=== PATIENT | female | born 1985 | race Hispanic/Latino ===

== ENCOUNTER 2023-11-18 09:16 | Emergency (ER) | payer OTHER, MEDICAID, SELFPAY ==
[2023-11-18] VITALS (11 sets, daily range): BP systolic 103–146; BP diastolic 58–73; PULSE 64–79; RESP 16; TEMP 37.1; O2SAT 98–100; BMI 36.2
--- NOTE | 2023-11-18 09:24 | DI.US.S_ITS ---
PROCEDURE: US OB <= 14 WEEKS FETUS INDICATIONS: SPOTTING OUTSIDE/PRIOR DATING DATA: Last menstrual period (LMP): Unknown. LMP-based estimated date of delivery (OREN): Not applicable. First dating scan (date and location): 11/18/2023. Estimated date of delivery (OREN) from first dating scan: 07/14/2024. TECHNIQUE: Real-time scanning was performed of the fetus and maternal pelvic organs, with image documentation. Endovaginal scanning was also performed to better visualize the fetus and maternal ovaries. COMPARISON: None. FINDINGS: There is a single living intrauterine gestation, with a heart rate of 87 beats per minute. [place]-rump length is 3 mm corresponding to a 5 week 6 day gestation. There is a 35 mm x 24 mm region of subchorionic hemorrhage adjacent to the internal cervical os. Maternal organs: There is a right ovarian corpus luteal cyst. Left ovary is not seen.. IMPRESSION: 1. Single living intrauterine gestation. 2. Small focus We strive to produce accurate, complete, and clear reports of imaging services. To assist us in improving patient care, this report was composed using standard report templates and voice recognition software. Therefore, it may contain abnormal punctuation, insertions and/or omissions. Occasional wrong-word or sound-alike substitutions may occur. Though we review the report and make efforts to correct it, we do recommend that the report be read carefully in proper context to recognize any text inaccuracies. Dictated by: Marizol Watkins M.D. on 11/18/2023 at 10:33 Approved by: Marizol Watkins M.D. on 11/18/2023 at 10:35
[2023-11-18 09:36] LABS: Add Manual Diff / Slide Review NO; Basophils Absolute Auto 100 /uL (0-100); Basophils Percent Auto 0.7 % (0-2); Eosinophils Absolute Auto 100 /uL (0-450); Eosinophils Percent Auto 0.8 % (2-4); Hematocrit 37.2 % (36-46); Hemoglobin 12.5 g/dL (12.0-16.0); Lymphocytes Absolute Auto 2300 /uL (1100-4500); Lymphocytes Percent Auto 31.9 % (25-40); Mean Corpuscular HGB Conc 33.7 % (30-36); Mean Corpuscular Volume 89.2 fL (80-100); Monocytes Absolute Auto 500 /uL (0-900); Neutrophils Absolute Auto 4300 /uL (1500-7000); Neutrophils Percent Auto 59.6 % (50-75); Platelet Count 284 X10^3/uL (150-400); Red Blood Cell Count 4.17 X10^6/uL (4.0-5.2); Red Cell Distribution Width 14.3 % (11.6-14.8); White Blood Cell Count 7.3 X10^3/uL (4.5-11.0)
[2023-11-18 09:50] LABS: Alanine Aminotransferase 40 IU/L (<35); Albumin 4.4 g/dL (3.5-5.0); Alkaline Phosphatase 59 U/L (38-126); Aspartate Aminotransferase 44 IU/L (14-36); BUN Creatinine Ratio 11.5 (6-22); Bilirubin Total 1.2 mg/dL (0.2-1.3); Blood Urea Nitrogen 7 mg/dL (7-17); Calcium 9.4 mg/dL (8.4-10.2); Carbon Dioxide 23 mmol/L (22-32); Chloride 103 mmol/L (98-107); Estimated Glomerular Filt Rate > 60 mL/min (>60); Globulin 4.2 g/dL (1.7-4.1); Glucose 86 mg/dL (70-100); HEMOLYSIS 120 (0-50); Potassium 4.2 mmol/L (3.4-5.1); Sodium 136 mmol/L (137-145); Total Protein 8.6 g/dL (6.3-8.2)
[2023-11-18 10:06] LABS: HCG Quantitative /Beta subunit 14495 mIU/mL
--- NOTE | 2023-11-18 11:00 | ED_ITS ---
HPI - General Chief complaint: Vaginal Bleeding Stated complaint: 8 wks , spotting Time Seen by Provider: 11/18/23 09:27 Source: patient Mode of arrival: Ambulatory Limitations: no limitations History of Present Illness HPI Narrative: 38-year-old female who believes that she is about 8 weeks . She has a SAB 1. Had some spotting yesterday. No urinary symptoms no fevers no bleeding more severe than spotting and no cramping. She and her are still in the process of establishing care locally. is present and contributes to the history. Related Data Allergies Allergy/AdvReac Type Severity Reaction Status Date / Time No Known Drug Allergies Allergy Verified 11/18/23 09:25 Exam Initial Vital Signs Initial Vital Signs: Vital Signs Temperature 98.8 F 11/18/23 09:17 Pulse Rate 74 11/18/23 09:17 Respiratory Rate 16 11/18/23 09:17 Blood Pressure 146/73 H 11/18/23 09:17 Pulse Oximetry 99 11/18/23 09:17 Oxygen Delivery Method Room Air 11/18/23 09:17 Const General: healthy appearing and No acute distress Resp Effort & Inspection: normal respiratory effort and able to speak in complete sentences Cardio Other: Normal heart rate Other: Uterus is not palpably enlarged, pelvis is nontender. Skin Other: Warm and dry Neuro General: patient alert and patient oriented x3 Course Orders Ordered: ED Orders 11/18/23 09:24 US OB <= 14 weeks fetus Stat 11/18/23 09:26 Complete Blood Count AUTO DIFF Stat Comprehensive Metabolic Panel Stat HCG Quantitative /Beta subunit Stat Type and Screen Stat Vital Signs Vital signs: Vital Signs - 8 hr 11/18/23 09:17 11/18/23 09:23 11/18/23 09:24 Temperature 98.8 F Pulse Rate 74 74 Respiratory Rate 16 Blood Pressure 146/73 H 146/73 H Pulse Oximetry 99 100 Oxygen Delivery Method Room Air 11/18/23 09:24 11/18/23 09:29 11/18/23 09:30 Temperature Pulse Rate 77 66 Respiratory Rate Blood Pressure 111/69 Pulse Oximetry 100 99 Oxygen Delivery Method 11/18/23 10:00 Temperature Pulse Rate Respiratory Rate Blood Pressure 113/60 Pulse Oximetry Oxygen Delivery Method MDM - OB/Uterine Contractions Lab Data Lab results narrative: Patient is Rh positive. CBC with diff and CMP are unremarkable. Quantitative hCG is appropriate, dip UA does not suggest infection 11/18/23 09:26 11/18/23 09:26 Labs: Lab Results 11/18/23 Range/Units 09:26 WBC 7.3 (4.5-11.0) X10^3/uL RBC 4.17 (4.0-5.2) X10^6/uL Hgb 12.5 (12.0-16.0) g/dL Hct 37.2 (36-46) % MCV 89.2 (80-100) fL MCH 30.0 (26-34) PG MCHC 33.7 (30-36) % RDW 14.3 (11.6-14.8) % Plt Count 284 (150-400) X10^3/uL Neut % (Auto) 59.6 (50-75) % Lymph % (Auto) 31.9 (25-40) % [place] % (Auto) 7.0 (3-14) % Eos % (Auto) 0.8 L (2-4) % Baso % (Auto) 0.7 (0-2) % Neut # (Auto) 4300 (3291-6432) /uL Lymph # (Auto) 2300 (7940-7229) /uL [place] # (Auto) 500 (0-900) /uL Eos # (Auto) 100 (0-450) /uL Baso # (Auto) 100 (0-100) /uL Sodium 136 L (137-145) mmol/L Potassium 4.2 (3.4-5.1) mmol/L Chloride 103 (98-107) mmol/L Carbon Dioxide 23 (22-32) mmol/L BUN 7 (7-17) mg/dL Creatinine 0.61 (0.52-1.04) mg/dL Estimated GFR > 60 (>60) mL/min BUN/Creatinine Ratio 11.5 (6-22) Glucose 86 (70-100) mg/dL Calcium 9.4 (8.4-10.2) mg/dL Total Bilirubin 1.2 (0.2-1.3) mg/dL AST 44 H (14-36) IU/L ALT 40 H (<35) IU/L Alkaline Phosphatase 59 (38-126) U/L Total Protein 8.6 H (6.3-8.2) g/dL Albumin 4.4 (3.5-5.0) g/dL Globulin 4.2 H (1.7-4.1) g/dL Albumin/Globulin Ratio 1.0 (1.0-2.8) HCG, Quant 14098 mIU/mL Blood Type O Positive Antibody Screen Negative Urine Dip Bedside Urine Glucose Negative Bedside Urine Bilirubin - Negative Bedside Urine Ketone - Negative Urine Specific [place] 1.015 Bedside Urine Occult Blood - Negative Bedside Urine pH 6.0 Bedside Urine Protein - Negative Bedside Urine Urobilinogen - Negative Bedside Urine Nitrite - Negative Bedside Urine Leukocytes - Negative Esterase Imaging Data US - LOGGING SPECIALIST: Radiologist's Impression: FINDINGS: There is a single living intrauterine gestation, with a heart rate of 87 beats per minute. [place]-rump length is 3 mm corresponding to a 5 week 6 day gestation. There is a 35 mm x 24 mm region of subchorionic hemorrhage adjacent to the internal cervical os. Maternal organs: There is a right ovarian corpus luteal cyst. Left ovary is not seen.. IMPRESSION: 1. Single living intrauterine gestation. 2. Small focus We strive to produce accurate, complete, and clear reports of imaging services. To assist us in improving patient care, this report was composed using standard report templates and voice recognition software. Therefore, it may contain abnormal punctuation, insertions and/or omissions. Occasional wrong-word or sound-alike substitutions may occur. Though we review the report and make efforts to correct it, we do recommend that the report be read carefully in proper context to recognize any text inaccuracies. Dictated by: Marizol Watkins M.D. on 11/18/2023 at 10:33 Approved by: Marizol Watkins M.D. on 11/18/2023 at 10:35 [facility] Narrative Medical decision making narrative: 38-year-old female with early spotting. Does not have urinary symptoms does not appear to have a urinary tract infection, she is Rh positive with a viable IUP seen on ultrasound. Patient is reassured and discharged to home. Discharge Plan Departure Patient Disposition: Home Clinical Impression: Spotting affecting in first trimester Activity Restrictions/Additional Instructions: Workup today is reassuring. Ultrasound shows a living intrauterine . Recommend that you continue with efforts to get care. Return to the emergency department for heavy bleeding such as more than 3 pads per hour for more than an hour or severe cramping. It is okay to use Tylenol for mild pain at this point in . Stand Alone Forms: Patient Portal/API
== END 2023-11-18 11:49 | disposition home or self-care (01) ==
PROVIDERS: Emergency Provider Emergency Medicine
DX: O26.851 Spotting complicating pregnancy, first trimester (principal); Z3A.00 Weeks of gestation of pregnancy not specified
CPT/HCPCS: 36415; 76801; 76817; 80053; 81003; 84702; 85025; 86850; 86900; 86901; 99283

== ENCOUNTER → 2023-11-20 16:22 | Outpatient (CLI) | payer OTHER, MEDICAID, SELFPAY ==
[2023-11-20 18:21] LABS: HCG Quantitative /Beta subunit 14701 mIU/mL
== END ==
LOC: LAB 16:24
PROVIDERS: PCP Obstetrics & Gynecology; Referring Provider Specialist; Visit Provider Specialist
DX: O26.851 Spotting complicating pregnancy, first trimester (principal)
CPT/HCPCS: 36415; 84702

== ENCOUNTER 2023-12-23 17:37 | Emergency (ER) | payer OTHER, MEDICAID, SELFPAY ==
[2023-12-23 17:44] VITALS: BP 134/78; PULSE 79; RESP 18; TEMP 36.6; O2SAT 99; BMI 36.2
--- NOTE | 2023-12-23 17:49 | DI.US.S_ITS ---
PROCEDURE: US OB <= 14 WEEKS FETUS INDICATIONS: bleeding with OUTSIDE/PRIOR DATING DATA: Last menstrual period (LMP): October 08, 2023. LMP-based estimated date of delivery (OREN): July 14, 2024. First dating scan (date and location): November 18, 2023. Estimated date of delivery (OREN) from first dating scan: July 14, 2024. TECHNIQUE: Real-time scanning was performed of the fetus and maternal pelvic organs, with image documentation. Endovaginal scanning was also performed to better visualize the fetus and maternal ovaries. COMPARISON: [facility], , OB <= 14 WEEKS FETUS, 11/22/2023, 16:12. FINDINGS: Embryo: Single living intrauterine gestation with estimated sonographic gestational age of approximately 11 weeks and 4 days based off [place]-rump length measurement of approximately 4.9 cm. Heart rate: 171 beats per minute Maternal organs: Unremarkable appearance of the maternal ovary/adnexa. Suggestion of possible placenta previa. IMPRESSION: Single living intrauterine gestation with estimated sonographic gestational age of approximately 11 weeks and 4 days based off crown-rump length measurement. Estimated dated delivery is approximately July 09, 2024. Suggestion of possible placenta previa. Recommend close clinical surveillance and follow-up imaging. We strive to produce accurate, complete, and clear reports of imaging services. To assist us in improving patient care, this report was composed using standard report templates and voice recognition software. Therefore, it may contain abnormal punctuation, insertions and/or omissions. Occasional wrong-word or sound-alike substitutions may occur. Though we review the report and make efforts to correct it, we do recommend that the report be read carefully in proper context to recognize any text inaccuracies Dictated by: Tony Asencio M.D. on 12/23/2023 at 20:34 Approved by: Tony Asencio M.D. on 12/23/2023 at 20:38
[2023-12-23 18:22] LABS: Add Manual Diff / Slide Review NO; Basophils Absolute Auto 0 /uL (0-100); Basophils Percent Auto 0.5 % (0-2); Eosinophils Absolute Auto 100 /uL (0-450); Eosinophils Percent Auto 0.8 % (2-4); Hematocrit 35.7 % (36-46); Hemoglobin 12.2 g/dL (12.0-16.0); Lymphocytes Absolute Auto 2500 /uL (1100-4500); Mean Corpuscular HGB Conc 34.1 % (30-36); Mean Corpuscular Hemoglobin 29.9 PG (26-34); Mean Corpuscular Volume 87.7 fL (80-100); Monocytes Absolute Auto 600 /uL (0-900); Monocytes Percent Auto 8.2 % (3-14); Neutrophils Absolute Auto 4100 /uL (1500-7000); Neutrophils Percent Auto 56.5 % (50-75); Platelet Count 264 X10^3/uL (150-400); Red Blood Cell Count 4.06 X10^6/uL (4.0-5.2); White Blood Cell Count 7.3 X10^3/uL (4.5-11.0)
[2023-12-23 18:37] LABS: Alanine Aminotransferase 24 IU/L (<35); Albumin 4.4 g/dL (3.5-5.0); Albumin Globulin Ratio 1.1 (1.0-2.8); Alkaline Phosphatase 73 U/L (38-126); Aspartate Aminotransferase 25 IU/L (14-36); BUN Creatinine Ratio 16.4 (6-22); Bilirubin Total 1.1 mg/dL (0.2-1.3); Blood Urea Nitrogen 9 mg/dL (7-17); Calcium 9.9 mg/dL (8.4-10.2); Carbon Dioxide 23 mmol/L (22-32); Chloride 100 mmol/L (98-107); Estimated Glomerular Filt Rate > 60 mL/min (>60); Globulin 3.9 g/dL (1.7-4.1); Glucose 85 mg/dL (70-100); HEMOLYSIS < 15 (0-50); Potassium 3.9 mmol/L (3.4-5.1); Sodium 137 mmol/L (137-145); Total Protein 8.3 g/dL (6.3-8.2)
[2023-12-23 18:53] LABS: HCG Quantitative /Beta subunit 14310 mIU/mL
--- NOTE | 2023-12-23 21:18 | ED.PREGNANCY ---
HPI - General Chief complaint: OB/Uterine Contractions Stated complaint: 10 wks /heavy vaginal bleeding Time Seen by Provider: 12/23/23 18:25 Source: patient Mode of arrival: Ambulatory Limitations: no limitations History of Present Illness HPI Narrative: 38-year-old 0 0 2 at approximately 11 weeks' gestation presents by private vehicle from home for vaginal bleeding. Already has established IUP this in his followed by OBGYN. Denies cramping. Blood type O positive. Related Data Home Medications Medication Instructions Recorded Confirmed vit no.95-ferrous 1 tab PO DAILY 12/09/23 12/09/23 fumarate 28 mg-folic acid 800 mcg tablet ( Multivitamins) Allergies Allergy/AdvReac Type Severity Reaction Status Date / Time No Known Drug Allergies Allergy Verified 12/09/23 10:05 Review of Systems Review of Systems Narrative: Negative except as noted above Exam Initial Vital Signs Initial Vital Signs: Vital Signs Temperature 97.8 F 12/23/23 17:44 Pulse Rate 79 12/23/23 17:44 Respiratory Rate 18 12/23/23 17:44 Blood Pressure 134/78 12/23/23 17:44 Pulse Oximetry 99 12/23/23 17:44 Oxygen Delivery Method Room Air 12/23/23 17:44 Const: Awake, alert, no acute distress, nontoxic appearing Eyes: PERRL, EOMI, conjunctiva normal ENT: Atraumatic, dentition normal, mucous membranes moist Cardiac: regular rate, regular rhythm RESP: unlabored, clear bilaterally, no wheezing GI: Atraumatic, soft, nontender, nondistended, no rebound, no guarding MSK: Atraumatic, full range of motion, pulses equal Skin: Warm, Dry, intact, no rashes Neuro: AO x3, CN II-XII grossly intact, moves all extremities Psych: affect normal, mood normal, not suicidal, not homicidal Course Orders Ordered: ED Orders 12/23/23 17:49 US OB <= 14 weeks fetus Stat 12/23/23 18:05 Complete Blood Count AUTO DIFF Stat Comprehensive Metabolic Panel Stat HCG Quantitative /Beta subunit Stat Type and Screen Stat Vital Signs Vital signs: Vital Signs - 8 hr 12/23/23 17:44 12/23/23 21:26 12/23/23 21:37 Temperature 97.8 F 97.8 F Pulse Rate 79 83 Respiratory Rate 18 16 Blood Pressure 134/78 117/67 Pulse Oximetry 99 99 Oxygen Delivery Method Room Air Room Air Room Air MDM - OB/Uterine Contractions Differential Diagnosis Differential diagnosis: Likely normal delivery at term, hemorrhage and -induced hypertension Lab Data 12/23/23 18:05 12/23/23 18:05 Labs: Lab Results 12/23/23 Range/Units 18:05 WBC 7.3 (4.5-11.0) X10^3/uL RBC 4.06 (4.0-5.2) X10^6/uL Hgb 12.2 (12.0-16.0) g/dL Hct 35.7 L (36-46) % MCV 87.7 (80-100) fL MCH 29.9 (26-34) PG MCHC 34.1 (30-36) % RDW 14.0 (11.6-14.8) % Plt Count 264 (150-400) X10^3/uL Neut % (Auto) 56.5 (50-75) % Lymph % (Auto) 34.0 (25-40) % [place] % (Auto) 8.2 (3-14) % Eos % (Auto) 0.8 L (2-4) % Baso % (Auto) 0.5 (0-2) % Neut # (Auto) 4100 (1476-7551) /uL Lymph # (Auto) 2500 (7628-9607) /uL [place] # (Auto) 600 (0-900) /uL Eos # (Auto) 100 (0-450) /uL Baso # (Auto) 0 (0-100) /uL Sodium 137 (137-145) mmol/L Potassium 3.9 (3.4-5.1) mmol/L Chloride 100 (98-107) mmol/L Carbon Dioxide 23 (22-32) mmol/L BUN 9 (7-17) mg/dL Creatinine 0.55 (0.52-1.04) mg/dL Estimated GFR > 60 (>60) mL/min BUN/Creatinine Ratio 16.4 (6-22) Glucose 85 (70-100) mg/dL Calcium 9.9 (8.4-10.2) mg/dL Total Bilirubin 1.1 (0.2-1.3) mg/dL AST 25 (14-36) IU/L ALT 24 (<35) IU/L Alkaline Phosphatase 73 (38-126) U/L Total Protein 8.3 H (6.3-8.2) g/dL Albumin 4.4 (3.5-5.0) g/dL Globulin 3.9 (1.7-4.1) g/dL Albumin/Globulin Ratio 1.1 (1.0-2.8) HCG, Quant 08751 mIU/mL Blood Type O Positive Antibody Screen Negative MDM Narrative Medical decision making narrative: Vaginal bleeding in early . Already documented IUP. ultrasound shows heart tones present, question placenta previa. Patient states that she would placenta previa with her 1st that did eventually resolve, but did cause a lot of bleeding in her 1st trimester. Patient counseled on ultrasound results, recommended pelvic rest until seen and cleared by OBGYN. Discharge Plan Departure Patient Disposition: Home Clinical Impression: Vaginal bleeding affecting early , Placenta previa Instructions: DI for Placenta Previa Activity Restrictions/Additional Instructions: Everything looks good with baby today. It does appear that you have a small amount of placenta previa on your ultrasound, which may be causing your bleeding. Please make sure that you follow up with OBGYN to monitor the previa. I recommend following pelvic rest, which means nothing in the vagina including toys or sexual intercourse until otherwise cleared by OBGYN. Prescriptions: No Action PNV cmb#95-ferrous fumarate-FA [ Multivitamins] 28 mg iron- 800 mcg tablet 1 tab PO DAILY Referrals: ProviderEsteban [Primary Care Provider] - Stand Alone Forms: Patient Portal/API
[2023-12-23 21:26] VITALS: BP 117/67; PULSE 83; RESP 16; TEMP 36.6; O2SAT 99
== END 2023-12-23 21:38 | disposition home or self-care (01) ==
PROVIDERS: Emergency Medicine; Emergency Provider Emergency Medicine
DX: O44.11 Complete placenta previa with hemorrhage, first trimester (principal); Z3A.11 11 weeks gestation of pregnancy
CPT/HCPCS: 36415; 76801; 80053; 84702; 85025; 86850; 86900; 86901; 99283

== ENCOUNTER → 2024-02-03 15:30 | Outpatient (CLI) | payer OTHER, MEDICAID, SELFPAY ==
[2024-02-03 16:29] LABS: Add Manual Diff / Slide Review NO; Basophils Absolute Auto 0 /uL (0-100); Basophils Percent Auto 0.3 % (0-2); Eosinophils Absolute Auto 100 /uL (0-450); Eosinophils Percent Auto 0.9 % (2-4); Hematocrit 33.8 % (36-46); Hemoglobin 11.6 g/dL (12.0-16.0); Lymphocytes Absolute Auto 2000 /uL (1100-4500); Lymphocytes Percent Auto 24.8 % (25-40); Mean Corpuscular HGB Conc 34.3 % (30-36); Mean Corpuscular Hemoglobin 30.7 PG (26-34); Mean Corpuscular Volume 89.4 fL (80-100); Monocytes Absolute Auto 600 /uL (0-900); Monocytes Percent Auto 7.8 % (3-14); Neutrophils Absolute Auto 5300 /uL (1500-7000); Neutrophils Percent Auto 66.2 % (50-75); Platelet Count 262 X10^3/uL (150-400); Red Blood Cell Count 3.78 X10^6/uL (4.0-5.2); Red Cell Distribution Width 14.5 % (11.6-14.8); White Blood Cell Count 7.9 X10^3/uL (4.5-11.0)
[2024-02-03 17:45] LABS: Hepatitis B Surface Antigen NEGATIVE s/c (NEGATIVE)
[2024-02-03 17:59] LABS: HIV 1 & 2 Ab/Ag 4th Gen Combo NEGATIVE (NEGATIVE); Hep C Virus Ab w/Reflex Quant NEGATIVE s/c (NEGATIVE)
[2024-02-04 06:58] LABS: RPR Screen Non Reactive (Non Reactive)
[2024-02-04 09:28] LABS: Varicella IgG Antibody 2473 index (Immune >165)
== END ==
PROVIDERS: Referring Provider Obstetrics & Gynecology; Visit Provider Obstetrics & Gynecology
DX: Z34.81 Encounter for supervision of other normal pregnancy, first trimester (principal)
CPT/HCPCS: 36415; 80055; 86787; 86803; 86850; 86900; 86901; 87389

== ENCOUNTER → 2024-03-02 15:39 | Outpatient (CLI) | payer OTHER, MEDICAID, SELFPAY ==
--- NOTE | 2024-03-02 15:40 | DI.US.S_ITS ---
PROCEDURE: US OB >= 14 WEEKS FETUS INDICATIONS: 20 week anatomy scan OUTSIDE/PRIOR DATING DATA: Last menstrual period (LMP): 10/08/2023. LMP-based estimated date of delivery (OREN): 07/14/2024. First dating scan (date and location): 11/18/2023. Estimated date of delivery (OREN) from first dating scan: 07/14/2024. The calculations are made using the clinical OREN of 07/14/2024. TECHNIQUE: Real-time scanning was performed of the fetus, with image documentation and biometric measurements. Endovaginal scanning: Not performed COMPARISON: [facility], , OB >= 14 WEEKS FETUS, 02/03/2024, 15:09. FINDINGS: General: A single living intrauterine gestation is present. Presentation: Variable. Placenta: Placental position is posterior , without previa. Amniotic fluid index: Within normal limits by visual assessment. heart rate: 153 beats per minute. Maternal cervical canal: 5.2 cm long. Normal lower limit is 2.5 cm. biometrics: Biparietal diameter: 5.2 cm, 21 weeks 6 days Head circumference: 18.6 cm, 21 weeks 0 days Abdominal circumference: 17.1 cm, 22 weeks 1 day Femur length: 3.6 cm, 21 weeks 2 days Clinically estimated gestational age: 20 weeks 6 days Composite gestational age from present scan: 21 weeks 4 days Estimated weight and percentile: 442 g, 86 percentile Anatomic survey: Neuro: Ventricles are non-dilated at less than 10 mm. Cisterna magna is normal at 3-11 mm. Cerebellum is normal in size and morphology. Nuchal skin fold: Normal at less than 6 mm between 14-21 weeks gestational age. Face: Nose and lips, facial profile are normal. Spine: No evidence for spina bifida. Heart: 4-chambered heart is present, with normal ventricular outflow tracts. Diaphragm: Diaphragm is intact. Stomach: Left-sided stomach is present. Kidneys: No hydronephrosis. Normal is less than 5 mm in 2nd trimester, less than 7 mm in 3rd trimester. Cord: 3-vessel cord has orthotopic insertion. Bladder: Normal in size. Extremities: All 4 extremities identified. IMPRESSION: Single living intrauterine at 20 weeks 6 days, OREN of 07/14/2024. Estimated weight of 442 g, 86th percentile. Normal anatomy survey. No placenta previa. We strive to produce accurate, complete, and clear reports of imaging services. To assist us in improving patient care, this report was composed using standard report templates and voice recognition software. Therefore, it may contain abnormal punctuation, insertions and/or omissions. Occasional wrong-word or sound-alike substitutions may occur. Though we review the report and make efforts to correct it, we do recommend that the report be read carefully in proper context to recognize any text inaccuracies. Dictated by: Cedric Avery M.D. on 03/03/2024 at 12:24 Approved by: Cedric Avery M.D. on 03/03/2024 at 12:28
== END ==
PROVIDERS: Referring Provider Obstetrics & Gynecology; Visit Provider Obstetrics & Gynecology
DX: Z34.82 Encounter for supervision of other normal pregnancy, second trimester (principal); Z3A.20 20 weeks gestation of pregnancy
CPT/HCPCS: 76811

== ENCOUNTER → 2024-04-02 09:34 | Outpatient (CLI) | payer OTHER, MEDICAID, SELFPAY ==
[2024-04-02 11:10] LABS: Hematocrit 31.2 % (36-46); Hemoglobin 10.8 g/dL (12.0-16.0)
[2024-04-02 11:39] LABS: GTT (PREG) 1 Hour PP 50gm Dose 132 mg/dL (76-139)
== END ==
PROVIDERS: Specialist; Referring Provider Obstetrics & Gynecology; Visit Provider Obstetrics & Gynecology
DX: Z34.82 Encounter for supervision of other normal pregnancy, second trimester (principal); Z3A.26 26 weeks gestation of pregnancy
CPT/HCPCS: 36415; 82950; 85014; 85018

== ENCOUNTER → 2024-04-16 10:21 | Outpatient (CLI) | payer OTHER, MEDICAID, SELFPAY ==
[2024-04-16 10:43] LABS: Appearance Urine UA CLEAR; Bilirubin Urine UA NEGATIVE (NEGATIVE); Color Urine UA YELLOW; Glucose Urine UA NEGATIVE (Negative); Ketones Urine UA NEGATIVE (NEGATIVE); Leukocyte Esterase Urine UA 1+ (NEGATIVE); Nitrite Urine UA NEGATIVE (Negative); Occult Blood Urine UA NEGATIVE (Negative); Protein Urine UA NEGATIVE (Negative); Specific Gravity Urine UA >=1.030 (1.000-1.035)
[2024-04-16 10:55] LABS: Bacteria Urine Moderate (10-30); Culture Indicated Urine Specimen Cultured; RBC Urine None Seen (0-5/HPF); Squamous Epithelial Cell Urine 5-10 /HPF (0-5/HPF); Urine Volume 10mL (spun); WBC Urine 1-5/HPF (0-5/HPF)
[2024-04-21 07:21] LABS: Candida species Positive (Negative); Gardnerella vaginalis Positive (Negative); Trichomoas vaginalis Negative (Negative)
== END ==
PROVIDERS: Referring Provider Obstetrics & Gynecology; Visit Provider Obstetrics & Gynecology
DX: N89.8 Other specified noninflammatory disorders of vagina (principal); R35.0 Frequency of micturition; Z34.81 Encounter for supervision of other normal pregnancy, first trimester
CPT/HCPCS: 81001; 87086; 87480; 87510; 87660

== ENCOUNTER 2024-04-28 23:03 | Observation (INO) | payer OTHER, MEDICAID, SELFPAY | END 2024-04-29 01:54 | disposition home or self-care (01) | PROVIDERS: Admitting Provider Obstetrics & Gynecology; Referring Provider Obstetrics & Gynecology; Visit Provider Obstetrics & Gynecology | DX: O46.93 Antepartum hemorrhage, unspecified, third trimester (principal); O09.523 Supervision of elderly multigravida, third trimester; O26.893 Other specified pregnancy related conditions, third trimester; R10.9 Unspecified abdominal pain; Z3A.29 29 weeks gestation of pregnancy | CPT/HCPCS: 59025; 59050; G0378; G0379; J1100; J1170; J2405; J2704 ==

== ENCOUNTER 2024-04-29 09:09 | Inpatient (IN) | payer OTHER, MEDICAID, SELFPAY ==
[2024-04-29 09:45] LABS: Appearance Urine UA CLOUDY; Bilirubin Urine UA NEGATIVE (NEGATIVE); Color Urine UA YELLOW; Glucose Urine UA NEGATIVE (Negative); Ketones Urine UA NEGATIVE (NEGATIVE); Leukocyte Esterase Urine UA 3+ (NEGATIVE); Nitrite Urine UA NEGATIVE (Negative); Occult Blood Urine UA 3+ (Negative); Protein Urine UA 3+ (Negative); Urobilinogen Urine UA 0.2 E.U./dL (0.2)
[2024-04-29 09:53] LABS: RBC Urine 30-100/HPF (0-5/HPF); Urine Volume 10mL (spun); WBC Urine 30-100/HPF (0-5/HPF)
[2024-04-29 09:54] LABS: Bacteria Urine Moderate (10-30); Culture Indicated Urine Specimen Cultured; Squamous Epithelial Cell Urine 10-30 /HPF (0-5/HPF)
--- NOTE | 2024-04-29 10:00 | SUR.OPER ---
time 1000
[2024-04-29] MEDS: LIDOCAINE 1% 20 ML INJ (10:13)
[2024-04-29 11:19] VITALS: BP 118/66; PULSE 87; RESP 15; TEMP 37.1; O2SAT 97
[2024-04-29] MEDS: fentaNYL 100 MCG/2 ML INJ IV (11:24)
[2024-04-29 11:25] VITALS: BP 116/79; PULSE 89; RESP 18; O2SAT 98
--- NOTE | 2024-04-29 11:25 | PM.OBHP.IH.1 ---
OB HPI Date/Time Date of admission: 04/29/24 Date Patient Seen: 04/29/24 Time Patient Seen: 08:40 History of Present Condition Chief complaint: OBSERVATION OF LABOR OREN Calculator Estimated Delivery Date Method Current WG Current Estimate 07/09/24 Ultrasound #2 30w 0d Other Estimates 07/14/24 Ultrasound #1 29w 2d Estimated Gestational Age (weeks): 29+6 : 4 Para: 2 care: good care, initiated at week # (13) and number of visits (4) Dating criteria OB: based on 1st trimester US only Ultrasounds: normal 1st trimester US and normal mid trimester US Obstetrical complications: other (First trimester bleeding) Medical complications OB: none Indications Operative indications ( section): breech presentation (Twenty-nine weeks, spontaneous rupture of membranes, small parts in the vagina) Preadmission Labs Last OB Lab Results: Blood Type O Positive 04/29/24 10:13 Antibody Screen Negative 04/29/24 10:13 Hematocrit 22.2 % (36-46) L 04/30/24 06:04 Hemoglobin 7.7 g/dL (12.0-16.0) L 04/30/24 06:04 Hepatitis B Surface Antigen Negative s/c (NEGATIVE) 02/03/24 15:44 Hepatitis C Antibody Negative s/c (NEGATIVE) 02/03/24 15:44 Rubella Antibody 60.0 IU/mL (>15) 02/03/24 15:44 Varicella-Zoster IgG Antibody 2473 index (Immune >165) 02/03/24 15:44 Glucose 1 Hour 132 mg/dL (76-139) 04/02/24 10:58 -: Chlamydia screen: negative, Gonorrhea screen: negative and Urine: negative -: PAP smear: Normal External Labs -: Urine: negative Prior (ies) Past Pregnancies Del. Date GA/Weeks Labor Lgth Wt Sex Route Outcome Anesthesia Place Delv Breastfeed Preg Comp Name 07/21/09 40 10 7 lb 2 oz Female vaginal live - full term epidural [place] [place] couple months placenta previa An[place] 02/23/11 4-6 spontaneous 03/01/16 40 5 7 lb 10 oz Male vaginal live - full term epidural [facility] ~6 months none [place] Delivery Date: 07/21/09 Last Updated by: Melanie Torres RN Previa resolved spontaneously Delivery Date: 02/23/11 Last Updated by: Melanie Torres RN blighted ovum? passed spontaneously, no complications Evaluation Evaluation Baseline heart rate: 135 Variability: Average (6-10) monitor accelerations: Present Monitor Decelerations: Absent Contraction Frequency (minutes): 3 Uterine Contraction Intensity: Strong/Firm Status: Category l Dilation (cm): 10 Effacement (%): 100 station: +1 [facility] Medical History (Updated 01/16/24 @ 21:06 by Elizabeth Prather) Acne (~1990) Chicken pox (~1992) Anemia (~1996) Placenta previa Healthy adult Surgical History (Updated 01/16/24 @ 21:06 by Elizabeth Prather) Anesthesia Hx of cholecystectomy (~2010) Family History (Updated 01/16/24 @ 21:06 by Elizabeth Prather) Father Diabetes mellitus Mother Hypertension Grandmother Hypertension Grandfather Diabetes mellitus Uncle Diabetes mellitus Brother Hypertension History of heart disease Sister Hypertension Social History marital status: number of children: 2 household members: spouse and children lives independently: Yes caregiver/support person: Yes housing: [facility] ([facility]) pets and animals: No education level: college (some college) occupational status: unemployed current occupational exposures/hazards: No special david needs: No travel history: recent ([place]) seatbelt use: always water heater temp set < 120 deg: Yes working smoke detector in home: Yes fire extinguisher in home: Yes carbon monox detector in home: Yes firearms in home: No do you feel safe at home: Yes Smoking Status: Never smoker second hand exposure: No alcohol intake: never substance use type: does not use during the past year weight has: remained stable well-balanced diet: rarely or never daily servings fruits/ve-1 caffeine: Yes (occasionally, mostly decaf while ) Type(s) of exercise: walking Meds Home Medications and Allergies Home Medications Medication Instructions Recorded Confirmed Type vit no.95-ferrous 1 tab PO DAILY 12/09/23 04/02/24 History fumarate 28 mg-folic acid 800 mcg tablet ( Multivitamins) fluconazole 150 mg tablet 150 mg PO Q3D 2 doses #2 tabs 04/21/24 Rx metronidazole 0.75 % (37.5 mg/5 1 appful vaginal BEDTIME 7 days 04/24/24 Rx gram) vaginal gel #70 grams Allergies Allergy/AdvReac Type Severity Reaction Status Date / Time No Known Drug Allergies Allergy Verified 04/02/24 08:59 OB Exam Narrative Exam Narrative: Generally: Patient lying in bed, very uncomfortable with contractions, feeling rectal pressure Fundal height: 30 cm Breech presentation with feet/small parts in the vagina Objective Labs 04/30/24 06:04 Labs: Laboratory Results - last 24 hr 04/29/24 04/29/24 09:30 10:13 Urine Color Yellow Urine Appearance Cloudy Urine pH 8.0 Ur Specific [place] 1.020 Urine Protein 3+ H Urine Glucose (UA) Negative Urine Ketones Negative Urine Occult Blood 3+ H Urine Nitrate Negative Urine Bilirubin Negative Urine Urobilinogen 0.2 Ur Leukocyte Esterase 3+ H Urine RBC 30-100/hpf H Urine WBC 30-100/hpf H Ur Squamous Epith Cells 10-30 /hpf H Urine Bacteria Moderate (10-30) H Ur Culture Indicated? Specimen cultured Vol Urine Centrifuged 10ml (spun) Blood Type O Positive Antibody Screen Negative Crossmatch See Detail Assessment and Plan Assessment and Plan Assessment and Plan narrative: Assessment: 39-year-old 4 para 2011 at 29-,6/7 weeks gestation with labor, status post spontaneous rupture of membranes Breech presentation with small parts in the vagina Plan: Emergency classical section The risks, benefits, and alternatives to the procedure were explained to the patient. The risks including bleeding, infection, injury to the bowel, bladder, or ureters. She understands these risks and agrees to proceed. Consent form was signed. OR, respiratory therapy, and Pediatrics notified Time Spent with Patient Total time spent with greater than 50% in coordination of care (as documented) at patient's floor/unit and/or counseling patient:: 15-24 minutes
--- NOTE | 2024-04-29 11:25 | PM.OBCS.1 ---
Operative Date/Time/Diagnoses Date of procedure: 04/29/24 Time of procedure: 11:25 Pre-op diagnosis: 29-6/7 weeks gestation labor Status post spontaneous rupture of membranes with clear fluid Breech presentation with small parts in the vagina Post-op diagnosis: same Procedure & Clinicians Procedure: Primary classical section Same procedure as scheduled: Yes Indications: 39-year-old 4 para 2011 at 29-,6/7 weeks gestation with labor, status post spontaneous rupture of membranes, breech presentation with small parts in the vagina. Surgeon: Anai Martinez Click Yes if Unassisted: No Seafood [employer] Meat Manager: Shakira Contreras Reason for Seafood And Service Meat Manager: The library serials assistant was necessary to retract upon entry into the abdomen and uterus. She assisted with delivery of the infant. She assisted with closure with retraction, clipping of suture, and closure of the contralateral fascia. Anesthesia Type: General Operative Notes Findings: Live male in the double footling breech presentation On prep of the patient, cord prolapse identified and RN elevated from below Normal uterus, tubes, and ovaries Closure Type: primary Specimen(s): cord blood, cord pH and placenta Intraoperative meds administered: Pitocin and Tranexamic acid Applied: Catheter (To continuous drainage) Estimated Blood Loss (mL): 1,818 Blood products transfused: none Procedure in detail: The patient was urgently taken to the operating room where she was placed in the dorsal supine position with a leftward tilt. She was prepped and draped quickly in a sterile fashion and a Holley catheter was placed. After general endotracheal anesthesia was achieved, a Pfannenstiel skin incision was made and carried through to the underlying layer fascia. The fascia was nicked in the midline and the incision extended bilaterally bluntly. The peritoneum was identified and entered sharply with the Metzenbaum scissors. This incision was extended bluntly. A bladder blade was inserted. A vertical incision was made from the fundus down to the lower uterine segment. This was carried through to the endometrial cavity. The infant was delivered by breech extraction. The cord was double clamped and cut. The infant was handed off to the waiting peds/RN/RT. The uterus was exteriorized. A piece of cord for cord pH was obtained. Cord bloods were obtained. Pitocin was given in the IV fluids. The uterus was closed in 2 layers with 1. Chromic with an interlocking fashion. The serosa was closed with a baseball stitch using 2-0 Vicryl. There was found to be a small rent in the lower uterine segment. This was closed in 2 layers with 0 Vicryl. Per Clot was placed on the uterine incision. The tubes and ovaries were examined and were found to be normal. The pelvis was copiously irrigated with warm normal saline. The peritoneum was closed with 2-0 Vicryl in a running fashion. The fascia was closed with 0 Vicryl in a running fashion. The subcutaneous layer was irrigated with warm normal saline. Six simple interrupted sutures with 3-0 Vicryl were placed to reapproximate the subcutaneous layer. The skin was closed with 4-0 Monocryl in a subcuticular fashion. Steri-Strips and an Aquacel dressing were placed. The uterus was expressed of a small amount of old blood. Sponge, lap, and instrument counts were correct x2. The patient tolerated the procedure well, and was taken to PACU in stable condition. Good urine output that was clear 1800 cc QBL Complications: none [place] Baby 1: Gender: Male Presentation: breech Details: footling Placental Delivery Description: Expressed Cord Vessel Description: 3 Vessels score (1 min): 3 score (5 min): 6 score (10 min): 9 weight: 3 lb 11.26 oz Post-operative Condition: stable Disposition: PACU Aftercare: routine postop
[2024-04-29 11:30] VITALS: BP 151/70; PULSE 83; RESP 24; O2SAT 98
[2024-04-29 11:35] VITALS: BP 126/74; PULSE 85; RESP 24; O2SAT 98
[2024-04-29 11:39] LABS: Hematocrit 28.9 % (36-46); Hemoglobin 9.7 g/dL (12.0-16.0)
[2024-04-29 11:41] VITALS: BP 137/67; PULSE 87; RESP 18; TEMP 37.1; O2SAT 96
[2024-04-29 11:50] VITALS: BP 125/73; PULSE 89; RESP 20; O2SAT 98
[2024-04-29] MEDS: KETOROLAC 30 MG/ML VIAL IV ×2 (12:23→17:54)
[2024-04-29] MEDS: HYDROMORPHONE 1 MG INJ 0.5 MG IV (12:24)
[2024-04-29] MEDS: LACTATED RINGERS 1,000 ML 100 ML IV (15:28)
[2024-04-29] MEDS: ACETAMINOPHEN 325 MG TABLET 650 MG PO (15:45)
[2024-04-29] MEDS: OXYCODONE IR 5 MG TABLET PO ×2 (16:07→20:10)
--- NOTE | 2024-04-29 16:07 | PATH_ITS ---
[facility] Accession Number: [id number] No. of containers..01 Tissue . 01 Material submitted: . placenta - PLACENTA . 01 Diagnosis: A. PLACENTA AND CORD, PLACENTA AND CORD, 29 WEEKS AND 6/7 DAYS, CESARIAN SECTION DELIVERY: Intact buenrostro placenta (408 grams, between 50th and 75th percentile for weight) with edematous and cellular villi, consistent with second trimester gestational age (not fully mature appearing villi); see comment. Three vessel umbilical cord, eccentrically inserted, with mild to moderate acute arteritis, mild acute funisitis, and one thrombus; no evidence of knots. membranes, marginally inserted with moderate acute chorioamnionitis and scattered pigment-laden macrophages. Chorionic villi with moderate diffuse acute neutrophilic inflammation to the chorionic plate and vessels, with associated fibrin/necrosis, few occluding fibrin clots in small vessls, and focal moderate chronic villitis and focal intervillous histiocytosis (see comment); no evidence of infarcts or parenchymal thrombosis. . COMMENT: Most importantly in this placenta is the presence of inflammation: acute chorioamnionitis, funisitis, arteritis and especially involving chorionic vessels with associated fibrin/necrosis, and in addition focal chronic lymphocytic villitis, which is considered moderate grade, with about 30 chorionic villi involved, on one slide, and the focal intervillous histiocytosis. The villi do appear edematous, large, and cellular likely secondary to the mononuclear inflammatory infiltrate and as highlighted by diffuse CD68 positivity within the villi. The main concern on the differential diagnosis is an infectious etiology, although no organisms are identified on special histochemical stains performed to evaluate for fungal organisms, bacterial, or CMV or HSV, these tests are not 100% sensitive; concerns for related infections should be further considered and ruled out clinically and serologically. Chronic villitis of unknown etiology is on the differential diagnosis. Immune-related causes remain on the differential diagnosis. . The findings of scattered thrombi, raise the possibility of vascular malperfusion and may explain the lack of maturity seen within the chorionic villi, but are likely secondary to the main process described above. There is no evidence of avascular villi or parenchymal infarcts. . The significance of such findings needs clinical correlation. . IHC SUMMARY on block A4: CD3 stain highlights the T-lymphocytes within inflamed villi. CD20 shows rare positivity within the villi of interest. CD68 stain is positive for histiocytes diffusely within all villi, and especially increased within those with associated CD3 positivity, and highlights the focus of increased intervillous histiocytes. CD138 for plasma cells is not seen in the villi of interest. PAS (on A2 and A3) and AFB (on A4) stains are negative for fungal and mycobacterial organisms respectively. CMV and HSV1/2 immunostains are negative for viral inclusions. . Controls stained appropriately. . * This test was developed and its performance characteristics determined by [employer]. It has not been cleared or approved by the U.S. Food and Drug Administration. The FDA has determined that such clearance or approval is not necessary. This test is used for clinical purposes. It should not be regarded as investigational or for research. [facility] 05/12/2024 1339 Local . 01 Electronically signed: . Ashlyn Talbot MD, Pathologist NPI- [id number] . 01 Gross description: . Received in formalin with two patient identifiers and placenta, is a discoid buenrostro placenta with a trimmed weight of 408 grams, measuring 15.4 x 13.3 x 2.8 cm, with no accessory lobes identified. . The membranes are lutz and translucent with no discoloration or thickening identified. They insert at the margin and have a point of rupture 5.7 cm from the nearest disc edge. . The cord measures 21.2 cm in length by 0.9 cm in average diameter, with a leftward coil, and an index of approximately 1.5 twists per 5 cm. The cord inserts eccentrically 3.6 cm from the nearest disc edge. Sectioning reveals unremarkable trivascular architecture with no knots or lesions identified. . The surface is blue-garcia with normal arborizing vasculature and no discoloration or lesions identified. . The maternal surface is apparently complete with no adherent clot, discoloration, or lesions identified. . The cut surfaces are red and spongy with no lesions identified. . Cofounder sections are submitted as follows: A1: Membrane roll and placental end of cord. A2: Membrane roll and end of cord. A3-A5: Central full thickness unremarkable sections. ([id number]) /MRV 04/30/2024 1239 Local . 01 Pathologist provided ICD-10: O60.14X3 . 01 CPT . 901141, [id number], S29008, [id number] Specimen Comment: A courtesy copy of this report has been sent to [phone] Performed at: [address] [facility] [address] [address], [place], [place] [id number] MD Parish Chaney MD Phone: [phone]
[2024-04-29] MEDS: CEFAZOLIN VIAL 1 GM in SODIUM CHLORIDE 0.9% 100 ML IV (17:55)
[2024-04-29 18:24] LABS: Hematocrit 26.5 % (36-46); Hemoglobin 9.2 g/dL (12.0-16.0)
[2024-04-29 21:23] LABS: Add Manual Diff / Slide Review NO; Basophils Absolute Auto 0 /uL (0-100); Basophils Percent Auto 0.1 % (0-2); Eosinophils Absolute Auto 0 /uL (0-450); Hematocrit 26.5 % (36-46); Hemoglobin 9.1 g/dL (12.0-16.0); Lymphocytes Absolute Auto 800 /uL (1100-4500); Lymphocytes Percent Auto 4.7 % (25-40); Mean Corpuscular HGB Conc 34.3 % (30-36); Mean Corpuscular Hemoglobin 31.3 PG (26-34); Mean Corpuscular Volume 91.2 fL (80-100); Monocytes Absolute Auto 500 /uL (0-900); Monocytes Percent Auto 3.1 % (3-14); Neutrophils Absolute Auto 15500 /uL (1500-7000); Neutrophils Percent Auto 92.1 % (50-75); Platelet Count 259 X10^3/uL (150-400); Red Blood Cell Count 2.91 X10^6/uL (4.0-5.2); Red Cell Distribution Width 13.6 % (11.6-14.8); White Blood Cell Count 16.8 X10^3/uL (4.5-11.0)
[2024-04-30] MEDS: ACETAMINOPHEN 325 MG TABLET 650 MG PO ×4 (00:03→20:06)
[2024-04-30] MEDS: OXYCODONE IR 5 MG TABLET PO ×4 (00:03→17:44)
[2024-04-30] MEDS: KETOROLAC 30 MG/ML VIAL IV ×2 (00:04→05:57)
[2024-04-30] MEDS: CEFAZOLIN VIAL 1 GM in SODIUM CHLORIDE 0.9% 100 ML IV ×3 (01:52→17:44)
[2024-04-30 06:15] LABS: Hematocrit 22.2 % (36-46); Hemoglobin 7.7 g/dL (12.0-16.0)
[2024-04-30] MEDS: PRENATAL VIT,CALC/IRON/FOLIC 1 TABLET 1 TAB PO (08:33)
[2024-04-30] MEDS: DOCUSATE 100 MG CAPSULE PO (08:34)
--- NOTE | 2024-04-30 09:36 | PM.OBPN.1 ---
Subjective - OB Subjective Patient comments: no complaints, incisional pain and flatus present baby status: NICU (At [facility]) [place] feeding status: pumping and storing Date Patient Seen: 04/30/24 Time Patient Seen: 09:15 Interval history: Postop day # 1 status post emergent classical section for 29 +6 week delivery after labor and spontaneous rupture of membranes with breech presentation. Baby is doing well in the NICU. Mom's bleeding is tapering. She is pumping and storing. She has gotten up and does not have any dizziness or lightheadedness. Her catheter has been removed, she has not voided as of yet. She is tolerating a diet. No nausea or vomiting. Exam Vital Signs (past 8 hours): Oxygen Delivery Method Room Air Narrative Exam Narrative: Generally: Patient is sitting up in bed, eating breakfast, no acute distress Lungs: Clear to auscultation bilaterally Cardiovascular: Regular rate and rhythm Fundus: Firm at U -2 Incision: Clean dry and intact with Aquacel dressing Extremities: Trace edema, negative Homans Objective Labs 04/30/24 06:04 Labs: Laboratory Results - last 24 hr 04/29/24 04/29/24 04/29/24 09:30 10:13 11:25 WBC RBC Hgb 9.7 L Hct 28.9 L MCV MCH MCHC RDW Plt Count Neut % (Auto) Lymph % (Auto) [place] % (Auto) Eos % (Auto) Baso % (Auto) Neut # (Auto) Lymph # (Auto) [place] # (Auto) Eos # (Auto) Baso # (Auto) Urine Color Yellow Urine Appearance Cloudy Urine pH 8.0 Ur Specific [place] 1.020 Urine Protein 3+ H Urine Glucose (UA) Negative Urine Ketones Negative Urine Occult Blood 3+ H Urine Nitrate Negative Urine Bilirubin Negative Urine Urobilinogen 0.2 Ur Leukocyte Esterase 3+ H Urine RBC 30-100/hpf H Urine WBC 30-100/hpf H Ur Squamous Epith Cells 10-30 /hpf H Urine Bacteria Moderate (10-30) H Ur Culture Indicated? Specimen cultured Vol Urine Centrifuged 10ml (spun) Blood Type O Positive Antibody Screen Negative Crossmatch See Detail 04/29/24 04/29/24 04/29/24 18:20 18:20 18:20 WBC 16.8 H RBC 2.91 L Hgb 9.1 L 9.2 L Hct 26.5 L 26.5 L MCV 91.2 MCH 31.3 MCHC 34.3 RDW 13.6 Plt Count 259 Neut % (Auto) 92.1 H Lymph % (Auto) 4.7 L [place] % (Auto) 3.1 Eos % (Auto) 0.0 L Baso % (Auto) 0.1 Neut # (Auto) 25303 H Lymph # (Auto) 800 L [place] # (Auto) 500 Eos # (Auto) 0 Baso # (Auto) 0 Urine Color Urine Appearance Urine pH Ur Specific [place] Urine Protein Urine Glucose (UA) Urine Ketones Urine Occult Blood Urine Nitrate Urine Bilirubin Urine Urobilinogen Ur Leukocyte Esterase Urine RBC Urine WBC Ur Squamous Epith Cells Urine Bacteria Ur Culture Indicated? Vol Urine Centrifuged Blood Type Antibody Screen Crossmatch 04/30/24 06:04 WBC RBC Hgb 7.7 L Hct 22.2 L MCV MCH MCHC RDW Plt Count Neut % (Auto) Lymph % (Auto) [place] % (Auto) Eos % (Auto) Baso % (Auto) Neut # (Auto) Lymph # (Auto) [place] # (Auto) Eos # (Auto) Baso # (Auto) Urine Color Urine Appearance Urine pH Ur Specific [place] Urine Protein Urine Glucose (UA) Urine Ketones Urine Occult Blood Urine Nitrate Urine Bilirubin Urine Urobilinogen Ur Leukocyte Esterase Urine RBC Urine WBC Ur Squamous Epith Cells Urine Bacteria Ur Culture Indicated? Vol Urine Centrifuged Blood Type Antibody Screen Crossmatch Assessment & Plan Plan day: 1 plan OB: routine postop care Comments: Assessment: 39-year-old 4 para 3 postop day # 1 status post emergent classical section for a breech presentation with labor/spontaneous rupture of membranes at 29+ 6 weeks' gestation. Acute blood loss anemia, asymptomatic Plan: We will hold off on transfusion until we see how the patient feels getting up to use the restroom Iron infusion Otherwise routine post op care Time Spent With Patient Time: Total time spent is greater than 50% in coordination of care (as documented) at patient's floor/unit and/or counseling patient: Time with patient: 15-24 minutes
[2024-04-30] MEDS: ferumoxytoL 510 MG in SODIUM CHLORIDE 0.9% 100 ML 468 MG IV (12:09)
[2024-04-30] MEDS: IBUPROFEN 600 MG TABLET PO ×2 (12:10→20:07)
[2024-05-01] MEDS: ACETAMINOPHEN 325 MG TABLET 650 MG PO ×2 (02:57→13:03)
[2024-05-01] MEDS: IBUPROFEN 600 MG TABLET PO ×2 (02:57→13:04)
[2024-05-01] MEDS: CEFAZOLIN VIAL 1 GM in SODIUM CHLORIDE 0.9% 100 ML IV ×2 (02:57→12:59)
[2024-05-01 06:49] LABS: Hematocrit 21.8 % (36-46); Hemoglobin 7.3 g/dL (12.0-16.0)
[2024-05-01] MEDS: DOCUSATE 100 MG CAPSULE PO (08:36)
[2024-05-01] MEDS: PRENATAL VIT,CALC/IRON/FOLIC 1 TABLET 1 TAB PO (08:36)
[2024-05-01 10:10] VITALS: BP 111/61; PULSE 92; RESP 16; TEMP 36.9
[2024-05-01 10:26] VITALS: BP 112/59; PULSE 73; RESP 16; TEMP 36.6
[2024-05-01 12:40] VITALS: BP 112/55; PULSE 81; RESP 16; TEMP 37.4
[2024-05-01] MEDS: OXYCODONE IR 5 MG TABLET PO (13:04)
--- NOTE | 2024-05-06 21:41 | P.DS_ITS ---
Discharge Providers Provider Date of admission: 04/29/24 09:09 Discharge Date: 05/01/24 Primary care physician: Esteban BARRAZA Provider Consults: 04/29/24 11:48 Consult to Applications Administrator Routine Comment: Discharge provider: Anai Martinez MD Summary Hospital Course Date Patient Seen: 05/01/24 Time Patient Seen: 12:45 Diagnoses: Thirty weeks' gestation labor Emergency classical section Breech presentation Spontaneous rupture of membranes Hospital Course: Patient is a 39-year-old 4 para December 12, 2004 who presented on April 29, 2024 with vaginal bleeding. She had a spontaneous rupture of membranes shortly after arriving on labor and delivery and baby was found to be in the breech presentation with a knee presentation. Shortly thereafter there were feet down in the vagina. An emergency classical section was performed through a Pfannenstiel incision. The was transferred to [facility]. Mom's course was unremarkable. She was discharged home on postop day # 2. She was voiding without the catheter. She was ambulating independently. She was tolerating a diet. Her bleeding was tapering. She was pumping. No nausea or vomiting. She was to follow-up in 1 week for Aquacel dressing removal Peripartum Data Infant Delivery Method: Emergency Section Procedures: General anesthesia Classical section through a Pfannenstiel incision complications: none [place] 1: Gender: Male Disposition of : NICU Status at Discharge Cognitive/behavioral status at discharge: oriented Functional status at discharge: independent ambulation Overall status at discharge: patient is progressing back to baseline Time Spent with Patient Time attestation: Total time spent providing and/or coordinating discharge services: Time spent: Less than 30 minutes Objective Labs 05/01/24 06:30 Exam Vital Signs (past 8 hours): Oxygen Delivery Method Room Air Narrative Exam Narrative: Generally: Patient walking around in room Lungs: Clear to auscultation bilaterally Cardiovascular: Regular rate and rhythm Fundus: Firm at U minus 2 Incision: Clean dry and intact with Aquacel dressing Extremities: Trace edema, negative Homans Discharge Plan Discharge Plan Patient Disposition: Home Provider Discharge Comment: Call with fever, chills, redness or drainage around the incision, or bleeding vaginally more than a pad in an hour Ibuprofen 600 mg every 6 hours as needed Tylenol 650 mg every 6 hours as needed Stool softener until bowel returns to normal Push oral fluids Discharge orders & Medications Prescriptions: New ibuprofen 600 mg tablet 600 mg PO Q6H PRN (Reason: pain) Qty: 30 2RF oxycodone 5 mg tablet 5 mg PO Q4H PRN (Reason: pain) Qty: 20 0RF docusate sodium 250 mg capsule 250 mg PO DAILY Qty: 20 0RF Continued PNV cmb#95-ferrous fumarate-FA [ Multivitamins] 28 mg iron- 800 mcg tablet 1 tab PO DAILY Discontinued fluconazole 150 mg tablet 150 mg PO Q3D Qty: 2 0RF Rx Instructions: may repeat second dose 72 hrs after first dose if symptoms persist metronidazole 0.75 % (37.5mg/5 gram) gel 1 appful vaginal BEDTIME 7 Days Qty: 70 0RF Follow up/Referrals: Anai Martinez MD [Physician] - (We will follow-up by phone in 1-2 weeks. Patient moving to [place] after baby gets out of the NICU, we will plan 6 week visit either here or in [place]) Diet/Activity/Treatments Activity: No heavy lifting. Nothing more than a gal of milk. Nothing in the vagina for 6 weeks Skin/Wound/Dressing Care Report to your healthcare provider any signs of infection, such as:: chills, fever, increased pain, unusual drainage and unusual redness Dressing: Do not remove for 1 week Visit Report/Discharge Packet Instructions: DI for , DI for Prescription Opioid Use Stand Alone Forms: Patient Portal/API, Stroke Signs & Symptoms Discharge Data Primary Care Provider: Esteban Campbell
== END 2024-05-01 17:20 | disposition home or self-care (01) | DRG 787 ==
PROVIDERS: Admitting Provider Obstetrics & Gynecology; Referring Provider Obstetrics & Gynecology; Visit Provider Obstetrics & Gynecology
PROC: 10D00Z1 Extraction of Products of Conception, Low, Open Approach (ICD-10-PCS; CPT 59514; principal; 2024-04-29 09:45)
DX: O60.12X0 Preterm labor second trimester with preterm delivery second trimester, not applicable or unspecified (principal); D62 Acute posthemorrhagic anemia; O90.81 Anemia of the puerperium; O32.8XX0 Maternal care for other malpresentation of fetus, not applicable or unspecified; Z3A.29 29 weeks gestation of pregnancy; Z37.0 Single live birth; Z67.40 Type O blood, Rh positive
CPT/HCPCS: 36415; 36430; 59050; 81001; 84112; 85014; 85018; 85025; 86850; 86900; 86901; 87086; P9016; G0379; J0690; J1170; J1885; J3010; Q0138